=== PATIENT | female | born 1960 | race Caucasian/White ===

== ENCOUNTER → 2016-12-09 | Outpatient (CLI) | payer BC ==
[~2016-12-09] MED LIST: CALCTAB41 PO; DOCU10CA PO; IBUP600T26 PO; PERC5TAB6 PO; VITA500C10 PO
[2016-12-09 15:30] LABS: ALBUMIN/GLOBULIN RATIO 1.33 (1.00-1.93); ALKALINE PHOSPHATASE 94 U/L (45-117); ALT/SGPT 30 U/L (12-78); ANION GAP 7 MEQ/L (8-16); AST/SGOT 11 U/L (15-37); BILIRUBIN,TOTAL 0.4 MG/DL (0.2-1.0); BLOOD UREA NITROGEN 21 MG/DL (7-18); CALCIUM LEVEL 8.9 MG/DL (8.5-10.1); CARBON DIOXIDE LEVEL 27 MEQ/L (21-32); CHLORIDE LEVEL 108 MEQ/L (98-107); CREATININE FOR GFR 0.78 MG/DL (0.55-1.02); GLOMERULAR FILTRATION RATE > 60.0 (>51); GLUCOSE, FASTING 111 MG/DL (70-105); POTASSIUM SERUM 4.6 MEQ/L (3.5-5.1); SODIUM LEVEL 142 MEQ/L (136-145)
== END ==
LOC: M WUC 09:31
PROVIDERS: ATTEND Nurse Practitioner Family
DX: E66.01 Morbid (severe) obesity due to excess calories (principal)

== ENCOUNTER → 2017-04-26 | Outpatient (REF) | payer BC ==
[~2017-04-26] MED LIST changes: +IBUP-1022 PO; -IBUP600T26 PO; +PERC5TAB12 PO; -PERC5TAB6 PO
== END ==
LOC: M SFHCWAGY 09:08
PROVIDERS: ATTEND Nurse Practitioner Women's Health
DX: Z12.4 Encounter for screening for malignant neoplasm of cervix (principal)

== ENCOUNTER → 2017-04-26 | Outpatient (CLI) | payer BC ==
--- NOTE | 2017-04-26 10:36 | REP ---
Bilateral screening digital mammogram: There are no palpable abnormalities or other breast complaints. The patient states she/he had a clinical breast exam in April 2017. Comparison is 12/15/2011. The breast parenchyma is moderately dense, unchanged. There has been no interval development of masses, areas of structural distortion or clusters of microcalcifications typical of malignancy. Impression: There is no evidence of malignancy. BI-RADS/ACR category 1 mammogram. Negative. The patient should have a repeat mammogram in 1 year. This mammogram was interpreted with the aid of an FDA-approved computer-aided detection system. A. Negative x-ray reports should not delay biopsy if a dominant or clinically suspicious mass is present. B. Not all breast cancers cancers are identified by mammography. C. Adenosis and dense breasts may obscure an underlying neoplasm. The patient letter being requested is M1.
== END ==
LOC: M WHC 08:41
PROVIDERS: ATTEND Nurse Practitioner Women's Health
DX: Z12.31 Encounter for screening mammogram for malignant neoplasm of breast (principal)

== ENCOUNTER → 2017-06-29 | Outpatient (CLI) | payer BC ==
[2017-06-29 12:23] LABS: ALBUMIN 3.7 GM/DL (3.2-5.2); ALBUMIN/GLOBULIN RATIO 1.23 (1.00-1.93); ALKALINE PHOSPHATASE 90 U/L (45-117); ALT/SGPT 23 U/L (12-78); ANION GAP 5 MEQ/L (8-16); AST/SGOT 12 U/L (7-37); BILIRUBIN,TOTAL 0.3 MG/DL (0.2-1.0); BLOOD UREA NITROGEN 23 MG/DL (7-18); CARBON DIOXIDE LEVEL 29 MEQ/L (21-32); CHLORIDE LEVEL 110 MEQ/L (98-107); CREATININE FOR GFR 0.67 MG/DL (0.55-1.02); GLOMERULAR FILTRATION RATE > 60.0 (>51); GLUCOSE, FASTING 104 MG/DL (70-105); POTASSIUM SERUM 4.7 MEQ/L (3.5-5.1); SODIUM LEVEL 144 MEQ/L (136-145); TOTAL PROTEIN 6.7 GM/DL (6.4-8.2)
== END ==
LOC: M WUC 09:27
PROVIDERS: ATTEND Nurse Practitioner Family
DX: E66.01 Morbid (severe) obesity due to excess calories (principal)

== ENCOUNTER → 2018-05-03 | Outpatient (CLI) | payer BC | LOC: M WHC 08:20 | DX: Z12.31 Encounter for screening mammogram for malignant neoplasm of breast (principal) | CPT/HCPCS: 77067 ==

== ENCOUNTER 2018-11-05 13:06 | Emergency (ER) | payer BC ==
[~2018-11-05] VITALS: Ht 154.9 cm; Wt 102.4 kg
[2018-11-05] MEDS ORDERED: NS 1,000 ML IV ONE (13:45)
[2018-11-05 14:46] LABS: BASO # 0.1 10^3/uL (0.0-0.2); BASO % 0.4 % (0.0-1.0); EOS # 0.2 10^3/uL (0.0-0.50); EOS % 1.7 % (0.0-3.0); HEMATOCRIT 44.1 % (36.0-47.0); HEMOGLOBIN 14.6 g/dl (12.0-15.5); LYMPH # 2.4 10^3/uL (1.5-4.5); LYMPH % 17.8 % (24.0-44.0); MEAN CORPUSCULAR HEMOGLOBIN 29.5 pg (27.0-33.0); MEAN CORPUSCULAR HGB CONC 33.1 g/dl (32.0-36.5); MEAN CORPUSCULAR VOLUME 89.1 fl (80.0-96.0); MONO # 0.9 10^3/uL (0.0-0.8); MONO % 6.5 % (0.0-5.0); NEUTROPHILS # 9.7 10^3/uL (1.8-7.7); NEUTROPHILS % 72.6 % (36.0-66.0); PLATELET COUNT, AUTOMATED 231 10^3/uL (150-450); RED BLOOD COUNT 4.95 10^6/uL (4.00-5.40); WHITE BLOOD COUNT 13.4 10^3/uL (4.0-10.0)
[2018-11-05] MEDS ORDERED: KETOROLAC 30 MG/ML VIAL (J1885) IV ONE (15:00)
[2018-11-05 15:13] LABS: BLOOD UREA NITROGEN 21 MG/DL (7-18); CALCIUM LEVEL 9.7 MG/DL (8.5-10.1); CARBON DIOXIDE LEVEL 27 MEQ/L (21-32); CHLORIDE LEVEL 108 MEQ/L (98-107); CREATININE FOR GFR 0.75 MG/DL (0.55-1.30); GLOMERULAR FILTRATION RATE > 60.0 (>51); GLUCOSE, FASTING 96 MG/DL (70-100); POTASSIUM SERUM 4.2 MEQ/L (3.5-5.1); SODIUM LEVEL 142 MEQ/L (136-145)
[2018-11-05] MEDS ORDERED: BACT800T5 PO (16:25)
[2018-11-05] MEDS ORDERED: FLOM0.4C39 PO (16:25)
[2018-11-05] MEDS ORDERED: ONDA4TAB6 PO (16:25)
[2018-11-05] MEDS ORDERED: KETO10TAB PO (16:26)
[2018-11-05 16:45] VITALS: BP 110/53
--- NOTE | 2018-11-06 06:35 | REP ---
CT ABDOMEN AND PELVIS WITHOUT CONTRAST: CT abdomen and pelvis performed without oral or IV contrast. Sagittal and coronal reconstruction images are performed. Visualized lung bases demonstrate minor fibroatelectatic change. There is a small hiatal hernia. Small ventral hernia to the left of midline in the mid abdomen contains fat. There is also a small supraumbilical hernia in the midline which contains fat. Liver, spleen, adrenals, pancreas, and right kidney are grossly unremarkable. There is mild left hydroureteronephrosis caused by a 6 mm calculus in the proximal aspect of the left ureter. No bladder calculus is seen. There is no evidence of abdominal aortic aneurysm with mild atherosclerotic calcifications noted. There is no adenopathy. There is no free air or free fluid. No bowel wall thickening is seen. There is no evidence of bowel obstruction. There is no evidence of appendicitis. No pelvic mass is seen. IMPRESSION: There is a 6 mm calculus in the proximal left ureter causing mild left hydroureteronephrosis. No other acute findings. Electronically Signed by Wilmer Ayala MD 11/06/2018 11:24 A
== END 2018-11-05 16:44 | disposition home or self-care (01) ==
LOC: M ED 13:06
DX: N21.1 Calculus in urethra (principal); N30.00 Acute cystitis without hematuria; Z87.442 Personal history of urinary calculi; Z96.0 Presence of urogenital implants; N13.30 Unspecified hydronephrosis; K44.9 Diaphragmatic hernia without obstruction or gangrene; K43.9 Ventral hernia without obstruction or gangrene; Z79.899 Other long term (current) drug therapy; Z88.5 Allergy status to narcotic agent; Z91.013 Allergy to seafood
CPT/HCPCS: 74176; 80048; 81001; 85025; 87088; 87186; 96361; 96374; 99284; J1885

== ENCOUNTER 2018-11-07 05:46 | Day surgery (SDC) | payer BC ==
[~2018-11-07] VITALS: Ht 154.9 cm; Wt 86.4 kg
[~2018-11-07 05:46] MED LIST changes: +BACT800T5 PO; +FLOM0.4C39 PO; +KETO10TAB PO; +ONDA4TAB6 PO
[2018-11-07] MEDS ORDERED: KETOROLAC 30 MG/ML VIAL (J1885) IV ONE (06:15)
[2018-11-07] MEDS ORDERED: NS 1,000 ML IV ONE (06:15)
[2018-11-07] MEDS ORDERED: ONDANSETRON 4MG/2ML VIAL (J2405) IV ONE (06:15)
[2018-11-07 06:49] LABS: BASO % 0.2 % (0.0-1.0); EOS # 0.2 10^3/uL (0.0-0.50); EOS % 1.8 % (0.0-3.0); HEMATOCRIT 41.5 % (36.0-47.0); HEMOGLOBIN 13.2 g/dl (12.0-15.5); LYMPH # 2.2 10^3/uL (1.5-4.5); LYMPH % 17.8 % (24.0-44.0); MEAN CORPUSCULAR HEMOGLOBIN 28.4 pg (27.0-33.0); MEAN CORPUSCULAR HGB CONC 31.8 g/dl (32.0-36.5); MEAN CORPUSCULAR VOLUME 89.4 fl (80.0-96.0); MONO # 0.8 10^3/uL (0.0-0.8); MONO % 6.4 % (0.0-5.0); NEUTROPHILS # 8.9 10^3/uL (1.8-7.7); NEUTROPHILS % 72.5 % (36.0-66.0); PLATELET COUNT, AUTOMATED 229 10^3/uL (150-450); RED BLOOD COUNT 4.64 10^6/uL (4.00-5.40); WHITE BLOOD COUNT 12.3 10^3/uL (4.0-10.0)
--- NOTE | 2018-11-07 07:03 | REP ---
Clinical: Left ureteral stone. Technique: Single supine view of the abdomen and pelvis. Findings: A 5 mm mid left ureteral stone just lateral to the L4-5 disc space is suspected. Further evaluation of the urinary tract system is limited due to bowel gas and technique. No bowel obstruction. Skeletal structures demonstrate age-related degenerative changes. Impression: Suspected 5 mm mid left ureteral stone. Electronically Signed by Israel Thibodeaux MD 11/07/2018 06:54 A
[2018-11-07 07:07] LABS: CALCIUM LEVEL 8.7 MG/DL (8.5-10.1); CREATININE FOR GFR 1.34 MG/DL (0.55-1.30); GLOMERULAR FILTRATION RATE 43.4 (>51); POTASSIUM SERUM 4.4 MEQ/L (3.5-5.1)
--- NOTE | 2018-11-07 07:29 | REPVR ---
EXAM: US Retroperitoneal Limited, Kidneys EXAM DATE/TIME: 11/07/2018 6:59 AM CLINICAL HISTORY: 58 years old, female; Abdominal pain; Colic; Additional info: Left renal colic, known 6mm L prox stone, reassess TECHNIQUE: Imaging protocol: Real-time ultrasound of the retroperitoneum with image documentation. Examination was focused on the kidneys. COMPARISON: CT ABD PELVIS W/O CONTRAST 11/05/2018 1:47 PM FINDINGS: Right kidney: The right kidney measures 11.0 x 5.3 x 5.1 cm. The right renal cortical parenchymal echogenicity is within normal limits. No right renal stones or hydronephrosis. There is no right renal mass. No ureteral jets seen on the right Left kidney: The left kidney measures 11.7 x 6.1 x 6.6 cm. The left renal cortical parenchymal echogenicity is within normal limits. Fullness in the left renal calyces and collecting systems seen. No ureteral jet seen on the left. Bladder: The urinary bladder is under distended but appears grossly unremarkable. IMPRESSION: 1. Mild left-sided hydronephrosis. 2. Nonspecific nonvisualization of the right and left ureteral jets Electronically signed by: Bayron Dalton On 11/07/2018 07:28:52 AM
[2018-11-07 08:04] LABS: AMORPHOUS SEDIMENT SMALL (NEGATIVE); APPEARANCE, URINE CLOUDY (CLEAR); BACTERIA, URINE AUTO NEGATIVE (NEGATIVE); BILIRUBIN, URINE AUTO NEGATIVE (NEGATIVE); BLOOD, URINE BLOOD NEGATIVE (NEGATIVE); COLOR, URINE YELLOW (YELLOW); GLUCOSE, URINE (UA) AUTO 1+ mg/dL (NEGATIVE); KETONE, URINE AUTO NEGATIVE (NEGATIVE); LEUKOCYTE ESTERASE, URINE AUTO 1+ (NEGATIVE); MUCUS, URINE SMALL (NEGATIVE); NITRITE, URINE AUTO NEGATIVE (NEGATIVE); PROTEIN, URINE AUTO NEGATIVE (NEGATIVE); RBC, URINE AUTO 4 /HPF (0-3); SPECIFIC GRAVITY URINE AUTO 1.019 (1.002-1.035); SQUAMOUS EPITHELIAL CELL UR AU 5 /HPF (0-6); URIC ACID CRYSTALS LARGE; UROBILINOGEN, URINE AUTO 0.2 mg/dL (0.0-2.0); WBC, URINE AUTO 2 /HPF (0-3)
--- NOTE | 2018-11-07 09:26 | REP ---
Clinical: Preoperative assessment . Comparison: None . Technique: PA and lateral. Findings: The mediastinum and cardiac silhouette are normal. The lung martínez are clear and without acute consolidation, effusion, or pneumothorax. The skeletal structures are intact and normal. Impression: 1. No acute cardiopulmonary process. Electronically Signed by Israel Thibodeaux MD 11/07/2018 09:17 A
[2018-11-07] MEDS ORDERED: KETO10TAB PO (09:29)
[2018-11-07] MEDS ORDERED: FLOM0.4C39 PO (09:29)
[2018-11-07] MEDS ORDERED: ASCO500T PO (09:29)
[2018-11-07] MEDS ORDERED: ONDANSETRON 4MG/2ML VIAL (J2405) IV PRN ×2 (09:30→18:00)
[2018-11-07] MEDS ORDERED: ACETAMINOPHEN TAB 650MG DOSE (2X325MG) PO PRN (09:30)
[2018-11-07] MEDS ORDERED: NS 1,000 ML IV SCH (09:30)
[2018-11-07] MEDS ORDERED: MORPHINE 4 MG/ML 1ML VIAL/SYRINGE (J2270) IV PRN (09:30)
[2018-11-07] MEDS ORDERED: REFR0.5D8 OU (09:30)
[2018-11-07] MEDS ORDERED: PERCOCET 5MG/325MG TAB PO PRN ×3 (09:30→18:15)
[2018-11-07] MEDS ORDERED: MULTCAP PO (09:30)
[2018-11-07] MEDS ORDERED: MORPHINE 4 MG/ML 1ML VIAL/SYRINGE (J2270) As Ordered ONE (14:09)
[2018-11-07] MEDS ORDERED: ONDANSETRON 4MG/2ML VIAL (J2405) As Ordered ONE ×2 (14:10→16:55)
[2018-11-07] MEDS ORDERED: CONRAY-60 60% 50ML VIAL (Q9961) As Ordered ONE (16:30)
--- NOTE | 2018-11-07 16:44 | SMCUROLCON ---
Urology Consultation General Date of Consultation 11/07/18 Reason For Consultation This patient is seen for Left Ureteral Calculus. History of Present Illness This is a 58 y/o F w/ a significant for kidney stones, who presented to the ER w/ severe left flank pain and n/v. She came to the ER 2 days ago w/ left flank pain and was diagnosed w/ a 6mm proximal left ureteral stone. She was sent home w/ pain medications and flomax and notes that her pain recurred early this morning. Due to the severe pain she came back to the ER. Her labs were notable for a bump in Cr to 1.3 from 0.8. A KUB was done that was notable for migration of the stone down to the mid ureter. At this time her pain is controlled but she is concerned about it coming back if she goes home. She denies dysuria or fevers. She had a kidney stone several years ago that she required surgery for. Past Medical History Medical History kidney stones Surgical Hstory lithotripsy w/ stent placement Medications Current Medications Current Medications Acetaminophen (Tylenol Tab) 650 mg Q4HP PRN PO MILD PAIN or TEMP > 101; Start 11/07/18 at 09:30 Docusate Sodium (Colace) 100 mg BID PO ; Start 11/07/18 at 21:00 Home Med (Med Rec Complete!) ASDIRECTED XX ; Start 11/07/18 at 09:45; Stop 11/07/18 at 09:45; Status DC Morphine Sulfate (Morphine Sulfate Inj) 2 mg Q2HP PRN IV SEVERE PAIN (PS 8-10) Last administered on 11/07/18at 14:16; Start 11/07/18 at 09:30 Ondansetron HCl (ZOFRAN INJection) 4 mg Q6HP PRN IV NAUSEA OR VOMITING Last administered on 11/07/18at 14:16; Start 11/07/18 at 09:30 Oxycodone/ Acetaminophen (Percocet 5mg/ 325mg Tablet) 1 tab Q4HP PRN PO MODERATE PAIN (PS 5-7); Start 11/07/18 at 09:30 Oxycodone/ Acetaminophen (Percocet 5mg/ 325mg Tablet) 2 tab Q4HP PRN PO MODERATE/SEVERE PAIN (PS 5-10); Start 11/07/18 at 09:30 Sodium Chloride 1,000 ml @ 125 mls/hr Q8H IV Last administered on 11/07/18at 10:28; Start 11/07/18 at 09:30 Allergies Allergies: Coded Allergies: shellfish derived (Verified Allergy, Unknown, 11/05/18) bloating codeine (Verified Adverse Reaction, Unknown, 11/05/18) heart racing Review of Systems Constitutional: Denies: Fever, Chills, Sweats, Weakness, Malaise Pulmonary: Denies: Dyspnea, Cough Cardiovascular: Denies Chest Pain, Denies Palpitations Gastrointestinal: Reports: Nausea, Vomiting, Abdominal Pain Genitourinary: Denies: Dysuria, Frequency, Incontinence, Hematuria Musculoskeletal: Reports: Back Pain (left flank pain) Neurological: Denies: Weakness, Numbness, Incoordination, Change in Speech Psych: Reports: Mood Normal; Denies: Anxiety, Depression Physical Examination General Exam: Alert, No Acute Distress Chest Exam: Clear to auscultation Heart Exam: Rate Normal, Regular Rhythm Abdomen Exam: Soft Skin Exam: Nl turgor and temperature Neuro Exam: Normal Speech Psych Exam: Mental status NL, Mood NL Vital Signs/I&O Vital Signs Date Time Temp Pulse Resp B/P (MAP) Pulse Ox O2 Delivery O2 Flow Rate FiO2 11/07/18 16:26 98.5 82 20 137/70 (92) 95 Room Air Laboratory Data 24H Labs Laboratory Tests 2 11/07/18 06:29: Immature Granulocyte % (Auto) 1.3, White Blood Count 12.3H, Red Blood Count 4.64, Hemoglobin 13.2, Hematocrit 41.5, Mean Corpuscular Volume 89.4, Mean Corpuscular Hemoglobin 28.4, Mean Corpuscular Hemoglobin Concent 31.8L, Red Cell Distribution Width 13.0, Platelet Count 229, Neutrophils (%) (Auto) 72.5H, Lymphocytes (%) (Auto) 17.8L, Monocytes (%) (Auto) 6.4H, Eosinophils (%) (Auto) 1.8, Basophils (%) (Auto) 0.2, Neutrophils # (Auto) 8.9H, Lymphocytes # (Auto) 2.2, Monocytes # (Auto) 0.8, Eosinophils # (Auto) 0.2, Basophils # (Auto) 0.0, Nucleated Red Blood Cells % (auto) 0.0, Urine Appearance CLOUDYH, Urine Color YELLOW, Urine pH 5.0, Urine Specific [place] 1.019, Urine Protein NEGATIVE, Urine Glucose (UA) 1+H, Urine Ketones NEGATIVE, Urine Urobilinogen 0.2, Urine Bilirubin NEGATIVE, Urine Leukocyte Esterase 1+H, Urine Blood NEGATIVE, Urine Nitrite NEGATIVE, Urine WBC (Auto) 2, Urine RBC (Auto) 4H, Urine Hyaline Casts (Auto) 0, Urine Bacteria (Auto) NEGATIVE, Urine Squamous Epithelial Cells 5, Urine Uric Acid Crystals (Auto) LARGE, Urine Amorphous Sediment SMALLH, Urine Mucus (Auto) SMALL, Urine Sperm (Auto) , Anion Gap 6L, Glomerular Filtration Rate 43.4L, Blood Urea Nitrogen 29H, Creatinine 1.34#H, Sodium Level 143, Potas sium Level 4.4, Chloride Level 111H, Carbon Dioxide Level 26, Calcium Level 8.7 CBC/BMP Laboratory Tests 11/07/18 06:29 Red Blood Count 4.64, Mean Corpuscular Volume 89.4, Mean Corpuscular Hemoglobin 28.4, Mean Corpuscular Hemoglobin Concent 31.8 L, Red Cell Distribution Width 1 3.0, Neutrophils (%) (Auto) 72.5 H, Lymphocytes (%) (Auto) 17.8 L, Monocytes (%) (Auto) 6.4 H, Eosinophils (%) (Auto) 1.8, Basophils (%) (Auto) 0.2, Neutrophils # (Auto) 8.9 H, Lymphocytes # (Auto) 2.2, Monocytes # (Auto) 0.8, Eosinophils # (Auto) 0.2, Basophils # (Auto) 0.0, Calcium Level 8.7 Assessment This is a 58 y/o F w/ an obstructing 6mm mid left ureteral stone and ABRAHAM. The ABRAHAM is likely 2/2 to n/v. Given this is her 2nd trip to the ER in a few days, I recommended that we take her to the OR for cystoscopy, left ureteroscopy w/ laser lithotripsy, and left ureteral stent placement. After a discussion of the risks and benefits of surgery, informed consent was signed. Her UA appears negative for infection. Plan - informed consent signed for cystoscopy, left ureteroscopy w/ laser lithotripsy, and left ureteral stent placement - NPO - ancef preop - likely discharge home after surgery if pain is controlled FRANCIS GATES MD November 07, 2018 16:44
[2018-11-07] MEDS ORDERED: ceFAZolin 2 GM/D5W 50 ML IV BAG (J0690 PER 500MG) As Ordered ONE (16:55)
[2018-11-07] MEDS ORDERED: dexameTHASONE 4 MG/ML 1ML VIAL (J1100) As Ordered ONE (16:55)
[2018-11-07] MEDS ORDERED: LIDOCAINE 2% INJ 100 MG/5 ML SDV (FOR ANES.) As Ordered ONE (16:55)
[2018-11-07] MEDS ORDERED: PROPOFOL 200 MG/20 ML VIAL As Ordered ONE (16:55)
[2018-11-07] MEDS ORDERED: fentaNYL 100 MCG/2 ML INJECTION (J3010) As Ordered ONE ×2 (16:55→17:12)
[2018-11-07] MEDS ORDERED: METOCLOPRAMIDE INJ 10MG/2ML VIAL (J2765) As Ordered ONE (16:55)
[2018-11-07] MEDS ORDERED: MIDAZOLAM INJ 2 MG/2 ML VIAL (J2250) As Ordered ONE (16:55)
[2018-11-07] MEDS ORDERED: diphenhydrAMINE INJ 50MG/ML VIAL (J1200) As Ordered ONE (17:05)
[2018-11-07] MEDS ORDERED: ePHEDrine SULFATE 25 MG/5 ML(5MG/ML) SYRINGE As Ordered ONE (17:17)
[2018-11-07] MEDS ORDERED: PHENYLephrine HCL 500 MCG/5 ML (100MCG/ML) SYRINGE (J2370) As Ordered ONE (17:28)
[2018-11-07] MEDS ORDERED: LR 1,000 ML IV SCH (18:00)
[2018-11-07] MEDS ORDERED: fentaNYL 100 MCG/2 ML INJECTION (J3010) IV PRN (18:00)
[2018-11-07] MEDS ORDERED: METOCLOPRAMIDE INJ 10MG/2ML VIAL (J2765) IV PRN (18:00)
[2018-11-07] MEDS ORDERED: MEPERIDINE INJ 25 MG/ML VIAL (J2175) IV PRN (18:00)
[2018-11-07] MEDS: PERCOCET 5MG/325MG TAB PO PRN ×2 (18:35→19:26)
--- NOTE | 2018-11-07 18:41 | REP ---
REASON: Left sided double pigtail urinary tract stent placement. Two views were obtained in my absentia. Fluoroscopy provided to Dr. Spencer is 25 seconds. There is a double pigtail catheter on the left. The proximal portion of the region of the renal pelvis and the distal portion of the region of the urinary bladder. Electronically Signed by Дмитрий Barr DO 11/07/2018 06:50 P
[2018-11-07 19:39] VITALS: BP 132/61
[2018-11-07] MEDS ORDERED: DOCUSATE SODIUM 100 MG CAP PO SCH (21:00)
--- NOTE | 2018-11-07 22:05 | ECGEPIP ---
Stationary ECG Study [facility] - ED Test Date: 2018-11-07 Pat Name: YAZ RAY Department: Room: - Gender: F Market Maker: DAVID : [id number] Requested By: ANKUSH GOMEZ PA-C. Order Number: [id number] Reading MD: Marc Jay Measurements Intervals [place] Rate: 83 P: 42 NV: 159 QRS: 12 QRSD: 75 T: 22 QT: 355 QTc: 418 Interpretive Statements SINUS RHYTHM SIMILAR TO 08/11/14 Electronically Signed On 11-07-2018 22:05:39 EDT by Marc Jay
--- NOTE | 2018-11-08 00:24 | RO ---
DATE OF PROCEDURE: 11/07/2018 PREPROCEDURE DIAGNOSIS: Left ureteral stone. POSTPROCEDURE DIAGNOSIS: Left ureteral stone. PROCEDURE: Cystoscopy, left ureteroscopy with laser lithotripsy and basket extraction of stones, left retrograde pyelogram with intraoperative interpretation of images, left ureteral stent placement. SURGEON: Maximo Spencer MD OFFICE SECRETARY: None. ANESTHESIA: General. OPERATIVE INDICATIONS: This is a 58-year-old female who was found to have a 6 mm obstructing proximal left ureteral stone a few days ago when she presented to the emergency room. She was sent home with pain medication and Flomax and her pain recurred early this morning. She was, therefore, recommended to be brought to the operating room today for the above listed procedure. DESCRIPTION OF PROCEDURE: The patient was brought to the operating room and general anesthesia was induced. Prophylactic antibiotics were infused. She was then placed in the dorsal lithotomy position and prepped and draped in the usual sterile fashion. A rigid cystoscope was inserted into the urethral meatus and advanced to the bladder. Once inside the bladder, a guidewire was advanced up the left collecting system. I then advanced a ureteral access sheath up the wire and then I went up the ureteral access sheath with a flexible ureteroscope. Within the mid ureter, a 6 mm stone was seen. The stone was then fragmented into several smaller pieces using 200 micron laser fiber. All the fragments were then removed using a basket. A retrograde pyelogram was then performed. It was notable for mild left hydronephrosis, no extravasation. At this point, the ureteroscope was removed along with the access sheath and no additional stones were seen in the ureter. I then utilized a wire to advance a 6-Vietnamese x 22-32 cm JJ ureteral stent up into the left collecting system. The wire was then removed, and there were adequate curls of the stent in the left renal pelvis and in the bladder. The bladder was then emptied of all fluids, and this marked the conclusion of the procedure. The patient was then taken out of the dorsal lithotomy position, awakened from anesthesia, and transported to the recovery room in stable condition. Estimated blood loss: 5 mL. Complications: None. Specimens: Kidney stone fragments. PLAN: The patient will followup in the clinic in a week or two for stent removal.
[2018-11-11 00:07] LABS: CA Oxalate Dihy 10 % (.); COMMENT Note: (.); Ca Ox Monohydrate 85 % (.)
== END 2018-11-07 19:40 | disposition home or self-care (01) ==
LOC: M ED 05:46 → M SDC 09:30
PROVIDERS: ATTEND Urology
DX: N20.1 Calculus of ureter (principal); Z87.891 Personal history of nicotine dependence; G47.30 Sleep apnea, unspecified; Z88.5 Allergy status to narcotic agent; Z91.013 Allergy to seafood
CPT/HCPCS: 52356; 71046; 74018; 74420; 76775; 80048; 81001; 82360; 85025; 88300; 93005; 96361; 96375; 96376; 99284; C1769; C2617; J0690; J1100; J1200; J1885; J2250; J2270; J2370; J2405; J2765; J3010; Q9961

== ENCOUNTER → 2019-05-04 | Outpatient (CLI) | payer BC ==
[~2019-05-04] MED LIST changes: +ASCO500T PO; +MULTCAP PO; +REFR0.5D8 OU
--- NOTE | 2019-05-04 09:55 | REP ---
BILATERAL MAMMOGRAM WITH 3D TOMOSYNTHESIS: No family history of breast cancer. Tyrer-Cuzick lifetime risk of breast cancer 6.1%. Bilateral MLO and CC views are performed with 3D tomosynthesis. Mild to moderate fibroglandular tissue for the most part is unchanged. I suspect a well circumscribed 6 mm nodule laterally in the left breast. I see no other evidence of new mass or clustered microcalcifications. There is no architectural distortion. IMPRESSION: BIRADS 0: BI-RADS/ACR category 0 mammogram, Incomplete: Need additional imaging evaluation and/or prior mammograms for comparison. There appears to be a new well circumscribed 6 mm nodule in the lateral left breast. Recommend spot compression views and ultrasound to further evaluate. ACR 0 incomplete. This mammogram was interpreted with the aid of an FDA-approved computer-aided detection system. The patient states he/she had a clinical breast exam in 04/2019. The patient letter being requested is M0.
== END ==
LOC: M WHC 07:53
PROVIDERS: ATTEND Nurse Practitioner Women's Health
DX: Z12.31 Encounter for screening mammogram for malignant neoplasm of breast (principal); N63.20 Unspecified lump in the left breast, unspecified quadrant

== ENCOUNTER → 2019-05-15 | Outpatient (CLI) | payer BC ==
--- NOTE | 2019-05-15 13:08 | REP ---
DIGITAL DIAGNOSTIC UNILATERAL LEFT BREAST MAMMOGRAPHY WITH CAD AND FOCUSED LEFT BREAST SONOGRAPHY: HISTORY: Screening mammography from May 04, 2019 was BI-RADS category 0 due to a 6 mm well-circumscribed nodule in the lateral left breast. Diagnostic imaging was recommended. MAMMOGRAPHIC FINDINGS: Magnified focal spot compression ML, true MLO, and MLO views of the left breast were obtained. The nodular opacity in question persists on the craniocaudal view and is seen on the MLO projection image. No other mammographic abnormality is seen. There is a larger stable density in the upper outer quadrant on the left as well. This not suspicious. SONOGRAPHIC FINDINGS: The left breast is scanned from 1-o'clock to 5-o'clock position. At the 1-o'clock position, there is a 1.2 cm normal-appearing lymph node with thin cortex overlying fatty hilar architecture. There is a 0.4 cm cyst at 1-o'clock position 2.2 cm from the nipple which may account for the mammographic opacity. No suspicious sonographic finding is seen. There is somewhat heterogeneous fibroglandular echotexture. IMPRESSION: BIRADS 2: BI-RADS/ACR category 2 mammogram. Benign Findings. BI-RADS category 2 benign left breast findings. Small cyst seen on sonography. Repeat screening bilateral mammography recommended in 1 year. This mammogram was interpreted with the aid of an FDA-approved computer-aided detection system. The patient states she had a clinical breast exam in April 23, 2019 The patient letter being requested is M#1. Electronically Signed by Reynold Johnston MD 05/15/2019 01:50 P
== END ==
LOC: M RAD 09:36
PROVIDERS: ATTEND Nurse Practitioner Women's Health
DX: N60.02 Solitary cyst of left breast (principal)

== ENCOUNTER → 2019-05-17 | Outpatient (REF) | payer BC ==
[2019-05-17 15:36] LABS: BASO % 0.4 % (0.0-1.0); EOS # 0.2 10^3/uL (0.0-0.5); EOS % 2.5 % (0.0-3.0); HEMATOCRIT 44.7 % (36.0-47.0); LYMPH # 2.8 10^3/uL (1.5-5.0); LYMPH % 36.6 % (24.0-44.0); MEAN CORPUSCULAR HEMOGLOBIN 29.5 pg (27.0-33.0); MEAN CORPUSCULAR HGB CONC 31.3 g/dl (32.0-36.5); MEAN CORPUSCULAR VOLUME 94.1 fl (80.0-96.0); MONO # 0.6 10^3/uL (0.0-0.8); PLATELET COUNT, AUTOMATED 187 10^3/uL (150-450); RED BLOOD COUNT 4.75 10^6/uL (4.00-5.40); WHITE BLOOD COUNT 7.7 10^3/uL (4.0-10.0)
[2019-05-17 15:53] LABS: ALBUMIN 3.8 GM/DL (3.2-5.2); ALT/SGPT 31 U/L (12-78); BILIRUBIN,TOTAL 0.5 MG/DL (0.2-1.0); BLOOD UREA NITROGEN 22 MG/DL (7-18); CARBON DIOXIDE LEVEL 30 MEQ/L (21-32); CHLORIDE LEVEL 106 MEQ/L (98-107); CHOLESTEROL LEVEL 162 MG/DL (<200); CHOLESTEROL RISK RATIO 4.378 (<5); CREATININE FOR GFR 0.72 MG/DL (0.55-1.30); FREE T4 0.78 NG/DL (0.76-1.46); GLOMERULAR FILTRATION RATE > 60.0 (>51); GLUCOSE, FASTING 88 MG/DL (70-100); HDL CHOLESTEROL 37 MG/DL (>40); LDL CHOLESTEROL 93 MG/DL (<100); NON-HDL-C 125 MG/DL; POTASSIUM SERUM 4.3 MEQ/L (3.5-5.1); SODIUM LEVEL 142 MEQ/L (136-145); TOTAL 25(OH) VITAMIN D 43.1 NG/ML (30.0-100.0); TRIGLYCERIDES LEVEL 160 MG/DL (<150)
[2019-05-17 16:01] LABS: HEMOGLOBIN A1c 5.9 %
== END ==
LOC: M SFHCSACK 10:23
PROVIDERS: ATTEND Physician Assistant
DX: Z87.442 Personal history of urinary calculi (principal); Z13.220 Encounter for screening for lipoid disorders; E03.9 Hypothyroidism, unspecified; Z83.3 Family history of diabetes mellitus; E55.9 Vitamin D deficiency, unspecified

== ENCOUNTER → 2019-11-09 | Outpatient (REF) | payer BC ==
[2019-11-09 11:44] LABS: BASO % 0.4 % (0.0-1.0); EOS # 0.3 10^3/uL (0.0-0.5); EOS % 3.5 % (0.0-3.0); HEMATOCRIT 45.1 % (36.0-47.0); LYMPH % 33.7 % (24.0-44.0); MEAN CORPUSCULAR HEMOGLOBIN 28.6 pg (27.0-33.0); MEAN CORPUSCULAR VOLUME 92.2 fl (80.0-96.0); MONO # 0.9 10^3/uL (0.0-0.8); MONO % 9.6 % (0.0-5.0); NEUTROPHILS # 4.6 10^3/uL (1.5-8.5); NEUTROPHILS % 51.8 % (36.0-66.0); PLATELET COUNT, AUTOMATED 224 10^3/uL (150-450); RED BLOOD COUNT 4.89 10^6/uL (4.00-5.40)
[2019-11-09 12:38] LABS: ALT/SGPT 26 U/L (12-78); BILIRUBIN,TOTAL 0.3 MG/DL (0.2-1.0); BLOOD UREA NITROGEN 18 MG/DL (7-18); CALCIUM LEVEL 8.9 MG/DL (8.5-10.1); CARBON DIOXIDE LEVEL 28 MEQ/L (21-32); CHLORIDE LEVEL 111 MEQ/L (98-107); CHOLESTEROL LEVEL 166 MG/DL (<200); CREATININE FOR GFR 0.86 MG/DL (0.55-1.30); GLOMERULAR FILTRATION RATE > 60.0 (>51); GLUCOSE, FASTING 130 MG/DL (70-100); HDL CHOLESTEROL 37 MG/DL (>40); POTASSIUM SERUM 4.7 MEQ/L (3.5-5.1); SODIUM LEVEL 144 MEQ/L (136-145); TRIGLYCERIDES LEVEL 160 MG/DL (<150)
[2019-11-09 12:39] LABS: ALBUMIN 3.7 GM/DL (3.2-5.2); CHOLESTEROL RISK RATIO 4.486 (<5); FREE T4 0.85 NG/DL (0.76-1.46); LDL CHOLESTEROL 97 MG/DL (<100); NON-HDL-C 129 MG/DL; TOTAL PROTEIN 6.8 GM/DL (6.4-8.2)
[2019-11-09 14:31] LABS: TOTAL 25(OH) VITAMIN D 40.9 NG/ML (30.0-100.0)
== END ==
LOC: M SFHCPLAZ 08:13
PROVIDERS: ATTEND Physician Assistant
DX: E78.1 Pure hyperglyceridemia (principal); E03.9 Hypothyroidism, unspecified; E55.9 Vitamin D deficiency, unspecified

== ENCOUNTER → 2020-05-06 | Outpatient (CLI) | payer BC ==
--- NOTE | 2020-05-06 09:22 | REPMRS ---
Patient History The patient states she had a clinical breast exam in May 2020. No known family history of cancer. Reductions of both breasts, 2000. 3D TOMOSYNTHESIS WAS PERFORMED. [facility] lifetime risk for breast cancer is 5.9%. [place] breast density b. Digital Woman Screen Mammo: May 06, 2020 - Exam #: [id number] Bilateral CC and MLO view(s) were taken. Technologist: RT Nataliia Prior study comparison: May 15, 2019, left breast digital mammo diagnostic unilateral, performed at [facility]. May 04, 2019, bilateral digital woman screen mammo performed at [facility]. FINDINGS: There are scattered fibroglandular densities. There is a fairly symmetric fibroglandular pattern in both breasts. There has been no interval development of masses, areas of architectural distortion or clusters of microcalcifications typical of malignancy. Assessment: BI-RADS/ACR category 2 mammogram. Benign Findings. Recommendation Routine screening mammogram of both breasts in 1 year (for women over age 40). This mammogram was interpreted with the aid of an FDA-approved computer-aided dectection system. Electronically Signed By: Wilmer Ayala MD 05/06/20 0921
== END ==
LOC: M WHC 08:03
PROVIDERS: ATTEND Nurse Practitioner Women's Health
DX: Z12.31 Encounter for screening mammogram for malignant neoplasm of breast (principal)

== ENCOUNTER → 2020-05-06 | Outpatient (REF) | payer BC | LOC: M SFHCWAGY 10:03 | PROVIDERS: ATTEND Nurse Practitioner Women's Health | DX: Z12.4 Encounter for screening for malignant neoplasm of cervix (principal); N95.2 Postmenopausal atrophic vaginitis | CPT/HCPCS: 87624; G0123 ==

== ENCOUNTER → 2020-05-16 | Outpatient (CLI) | payer BC ==
[2020-05-16 10:17] LABS: ALBUMIN 3.8 GM/DL (3.2-5.2); ALT/SGPT 28 U/L (12-78); BILIRUBIN,TOTAL 0.4 MG/DL (0.2-1.0); BLOOD UREA NITROGEN 22 MG/DL (7-18); CALCIUM LEVEL 8.5 MG/DL (8.5-10.1); CARBON DIOXIDE LEVEL 25 MEQ/L (21-32); CHLORIDE LEVEL 109 MEQ/L (98-107); CHOLESTEROL LEVEL 133 MG/DL (<200); CREATININE FOR GFR 0.76 MG/DL (0.55-1.30); GLOMERULAR FILTRATION RATE > 60.0 (>51); GLUCOSE, FASTING 143 MG/DL (70-100); HDL CHOLESTEROL 33 MG/DL (>40); LDL CHOLESTEROL 63 MG/DL (<100); NON-HDL-C 100 MG/DL; POTASSIUM SERUM 4.3 MEQ/L (3.5-5.1); SODIUM LEVEL 142 MEQ/L (136-145); TOTAL PROTEIN 6.4 GM/DL (6.4-8.2); TRIGLYCERIDES LEVEL 183 MG/DL (<150)
== END ==
LOC: M WUC 08:07
PROVIDERS: ATTEND Physician Assistant
DX: E78.1 Pure hyperglyceridemia (principal); Z83.3 Family history of diabetes mellitus; Z87.442 Personal history of urinary calculi

== ENCOUNTER → 2020-05-27 | Outpatient (CLI) | payer BC ==
[2020-05-27 12:26] LABS: HEMATOCRIT 46.1 % (36.0-47.0); HEMOGLOBIN 14.6 g/dl (12.0-15.5); MEAN CORPUSCULAR HEMOGLOBIN 29.1 pg (27.0-33.0); MEAN CORPUSCULAR HGB CONC 31.7 g/dl (32.0-36.5); PLATELET COUNT, AUTOMATED 235 10^3/uL (150-450); RED BLOOD COUNT 5.01 10^6/uL (4.00-5.40); WHITE BLOOD COUNT 9.3 10^3/uL (4.0-10.0)
[2020-05-27 13:02] LABS: ERYTHROCYTE SEDIMENTATION RATE 10 mm/hr (0-30)
[2020-05-27 13:04] LABS: C REACTIVE PROTEIN QUANTITATIV 1.52 MG/DL (0.00-0.30); RHEUMATOID FACTOR QUANT < 10.0 IU/ML (<15.0)
[2020-05-29 13:08] LABS: ANTINUCLEAR ANTIBODIES DIRECT Negative (Negative); CYCLIC CITRULLINATED PEPTIDE 3 units (0-19); Lyme Disease IgG Ab 18 kDa Ban Absent (.); Lyme Disease IgG Ab 23 kDa Ban Absent (.); Lyme Disease IgG Ab 28 kDa Ban Absent (.); Lyme Disease IgG Ab 30 kDa Ban Absent (.); Lyme Disease IgG Ab 39 kDa Ban Absent (.); Lyme Disease IgG Ab 41 kDa Ban Present (.); Lyme Disease IgG Ab 45 kDa Ban Absent (.); Lyme Disease IgG Ab 58 kDa Ban Absent (.); Lyme Disease IgG Ab 66 kDa Ban Absent (.); Lyme Disease IgG Ab 93 kDa Ban Absent (.); Lyme Disease IgG West Blot Int Negative (.); Lyme Disease IgG/IgM Antibodie 1.08 ISR (0.00-0.90); Lyme Disease IgM Ab 23 kDa Ban Absent (.); Lyme Disease IgM Ab 39 kDa Ban Absent (.); Lyme Disease IgM Ab 41 kDa Ban Absent (.); Lyme Disease IgM Ab Quantitati <0.80 index (0.00-0.79); Lyme Disease IgM West Blot Int Negative (.)
== END ==
LOC: M WUC 08:47
PROVIDERS: ATTEND Physician Assistant
DX: M25.50 Pain in unspecified joint (principal)

== ENCOUNTER → 2021-06-05 | Outpatient (CLI) | payer BC ==
--- NOTE | 2021-06-05 10:18 | REPMRS ---
Patient History The patient states she had a clinical breast exam in June 2021. No known family history of cancer. Reductions of both breasts, 2000. Tomosynthesis is performed. Volpara breast density is a. [facility] lifetime risk of breast cancer 5.7%. Patient states no breast complaints today. Patient has signed MRS History Sheet. Digital Woman Screen Mammo: June 05, 2021 - Exam #: [id number] Bilateral CC and MLO view(s) were taken. Technologist: Geeta Armas Technologist Prior study comparison: May 06, 2020, bilateral digital woman screen mammo performed at [facility]. May 15, 2019, left breast digital mammo diagnostic unilateral, performed at [facility]. FINDINGS: There are scattered fibroglandular densities. There is a fairly symmetric fibroglandular pattern in both breasts. There has been no interval development of masses, areas of architectural distortion or clusters of microcalcifications typical of malignancy.Scattered subcentimeter smoothly marginated nodules are stable bilaterally. No significant changes when compared with prior studies. Assessment: BI-RADS/ACR category 2 mammogram. Benign Findings. Recommendation Routine screening mammogram in 1 year (for women over age 40). This mammogram was interpreted with the aid of an FDA-approved computer-aided dectection system. Electronically Signed By: Wilmer Ayala MD 06/05/21 1018
== END ==
LOC: M WHC 07:11
PROVIDERS: ATTEND Nurse Practitioner Women's Health
DX: Z12.31 Encounter for screening mammogram for malignant neoplasm of breast (principal)

== ENCOUNTER → 2021-10-30 | Outpatient (CLI) | payer BC | LOC: M SOG 11:23 | PROVIDERS: ATTEND Orthopaedic Surgery Adult Reconstructive Orthopaedic Surgery | DX: M25.562 Pain in left knee (principal); M17.12 Unilateral primary osteoarthritis, left knee ==

== ENCOUNTER 2021-11-26 14:09 | Outpatient (RCR) | payer BC | END 2021-12-02 | LOC: M PT 14:09 | PROVIDERS: ATTEND Orthopaedic Surgery Adult Reconstructive Orthopaedic Surgery | DX: M17.11 Unilateral primary osteoarthritis, right knee (principal) ==

== ENCOUNTER → 2021-12-08 | Outpatient (CLI) | payer BC ==
[~2021-12-08] MED LIST changes: +FAMO40TA3; +PHEN15CA6; +VITMTA PO
== END ==
LOC: M RAD 13:16
PROVIDERS: ATTEND Orthopaedic Surgery Adult Reconstructive Orthopaedic Surgery
DX: M17.0 Bilateral primary osteoarthritis of knee (principal); M25.761 Osteophyte, right knee; M25.751 Osteophyte, right hip

== ENCOUNTER → 2021-12-21 | Outpatient (CLI) | payer BC ==
[~2021-12-21] MED LIST changes: +ACET1TAB55 PO; +ASCO50TA PO; +ASPI-551 PO; +COLA100C5 PO; +FERR1TAB8 PO; +NAPR-849 PO; +OXYC-517 PO; +TRAM50TA2 PO
== END ==
LOC: M LABSMTC 11:25
PROVIDERS: ATTEND Anesthesiology
DX: Z01.812 Encounter for preprocedural laboratory examination (principal); Z20.822 Contact with and (suspected) exposure to COVID-19

== ENCOUNTER 2021-12-22 08:53 | Day surgery (SDC) | payer BC ==
[~2021-12-22] VITALS: Ht 157.5 cm; Wt 105.5 kg
[~2021-12-22 08:53] MED LIST changes: -ACET1TAB55 PO; +ACETAMINOPHEN 500 MG TAB PO ONE; -ASCO50TA PO; -ASPI-551 PO; -COLA100C5 PO; -FERR1TAB8 PO; -NAPR-849 PO; +NAPROXEN 250 MG TAB PO ONE; +NS 1,000 ML IV ONE; -OXYC-517 PO; +PREGABALIN 25 MG CAP (LYRICA) PO ONE; +ROPIVA 125MG/EPINEPH 0.25MG/CLONID 40MCG/KETOR 15MG IN NS 50ML SYRINGE PA ONE; -TRAM50TA2 PO; +ceFAZolin SOD 2 GM in IV 1 EA IV ONE; +dexameTHASONE 4 MG/ML 1ML VIAL (J1100 PER 1MG) IV ONE
[2021-12-22] MEDS ORDERED: LR 1,000 ML IV SCH ×2 (09:45→13:40)
[2021-12-22] MEDS ORDERED: MIDAZOLAM INJ 2MG/2ML VIAL (J2250 PER 1MG) As Ordered ONE (09:48)
[2021-12-22] MEDS ORDERED: propofoL 500 MG/50 ML VIAL As Ordered ONE (09:48)
[2021-12-22] MEDS ORDERED: fentaNYL 100 MCG/2 ML INJECTION As Ordered ONE (09:49)
[2021-12-22] MEDS ORDERED: dexameTHASONE 4 MG/ML 1ML VIAL (J1100 PER 1MG) As Ordered ONE (09:50)
[2021-12-22] MEDS ORDERED: ONDANSETRON 4MG/2ML VIAL As Ordered ONE (09:50)
[2021-12-22] MEDS ORDERED: LIDOCAINE 2% 100MG/5ML SDV (FOR ANES.) As Ordered ONE (09:56)
[2021-12-22] MEDS ORDERED: TRANEXAMIC ACID 100 MG/ML 10ML VIAL As Ordered ONE (10:31)
[2021-12-22] MEDS ORDERED: propofoL 200 MG/20 ML VIAL As Ordered ONE ×2 (12:14→12:39)
[2021-12-22] MEDS ORDERED: PHENYLephrine 500MCG 5ML (100MCG/ML) SYRINGE As Ordered ONE (12:25)
[2021-12-22] MEDS ORDERED: MEPERIDINE INJ 25 MG/ML VIAL (J2175) IV PRN (13:10)
[2021-12-22] MEDS ORDERED: oxyCODONE 5MG TAB PO PRN ×3 (13:10→13:30)
[2021-12-22] MEDS ORDERED: NS 1,000 ML IV SCH (13:10)
[2021-12-22] MEDS ORDERED: HYDROMORPHONE HCL 0.5 MG/ 0.5 ML SYRINGE (J1170 PER 1) IV PRN (13:10)
[2021-12-22] MEDS ORDERED: fentaNYL 100 MCG/2 ML INJECTION IV PRN (13:10)
[2021-12-22] MEDS ORDERED: ONDANSETRON 4MG/2ML VIAL IV PRN ×2 (13:10→13:30)
[2021-12-22] MEDS ORDERED: MOM 30ML SUSPENSION UDC PO PRN (13:20)
[2021-12-22] MEDS ORDERED: SENNA 8.6 MG TAB (SENOKOT) PO PRN (13:30)
[2021-12-22 15:46] VITALS: BP 158/63
[2021-12-22 16:30] VITALS: BP 121/57
[2021-12-22 17:30] VITALS: BP 136/68
[2021-12-22 18:30] VITALS: BP 135/66
[2021-12-22] MEDS: ACETAMINOPHEN TAB 650MG DOSE (2X325MG) PO SCH ×2 (18:36→23:40)
[2021-12-22] MEDS: ceFAZolin SOD 2 GM in IV 1 EA IV SCH (18:37)
[2021-12-22 19:39] VITALS: BP 131/82
[2021-12-22] MEDS: ASPIRIN 81MG ENTERIC TABLET PO SCH (20:20)
[2021-12-22] MEDS: DOCUSATE SODIUM 100MG CAPSULE PO SCH ×2 (20:20→21:00)
[2021-12-22] MEDS: NAPROXEN 250 MG TAB PO SCH (20:20)
[2021-12-22] MEDS: traMADol 50 MG TAB PO PRN (23:42)
[2021-12-23 01:28] VITALS: BP 104/66
[2021-12-23] MEDS: ceFAZolin SOD 2 GM in IV 1 EA IV SCH ×2 (02:57→12:09)
[2021-12-23] MEDS: ACETAMINOPHEN TAB 650MG DOSE (2X325MG) PO SCH ×2 (05:28→12:09)
[2021-12-23 05:43] VITALS: BP 121/67
[2021-12-23 05:44] LABS: HEMATOCRIT 38.7 % (36.0-47.0); HEMOGLOBIN 12.5 g/dl (12.0-15.5); MEAN CORPUSCULAR HEMOGLOBIN 29.7 pg (27.0-33.0); MEAN CORPUSCULAR HGB CONC 32.3 g/dl (32.0-36.5); MEAN CORPUSCULAR VOLUME 91.9 fl (80.0-96.0); PLATELET COUNT, AUTOMATED 220 10^3/uL (150-450); RED BLOOD COUNT 4.21 10^6/uL (4.00-5.40); WHITE BLOOD COUNT 21.1 10^3/uL (4.0-10.0)
[2021-12-23] MEDS ORDERED: FERR1TAB8 PO (08:17)
[2021-12-23] MEDS ORDERED: OXYC-517 PO (08:17)
[2021-12-23] MEDS ORDERED: ASCO50TA PO (08:17)
[2021-12-23] MEDS ORDERED: ASPI-551 PO (08:17)
[2021-12-23] MEDS ORDERED: ACET1TAB55 PO (08:17)
[2021-12-23] MEDS ORDERED: TRAM50TA2 PO (08:17)
[2021-12-23] MEDS ORDERED: NAPR-849 PO (08:17)
[2021-12-23] MEDS ORDERED: COLA100C5 PO (08:17)
[2021-12-23] MEDS ORDERED: FERROUS SULFATE 325MG TAB PO SCH (09:00)
[2021-12-23] MEDS ORDERED: ASCORBIC ACID 500 MG TAB PO SCH (09:00)
[2021-12-23] MEDS: DOCUSATE SODIUM 100MG CAPSULE PO SCH ×2 (09:00→09:11)
[2021-12-23] MEDS: ASPIRIN 81MG ENTERIC TABLET PO SCH (09:11)
[2021-12-23] MEDS: NAPROXEN 250 MG TAB PO SCH (09:12)
[2021-12-23 09:53] VITALS: BP 123/60
[2021-12-23 14:00] VITALS: BP 119/60
[2021-12-23] MEDS: traMADol 50 MG TAB PO PRN (15:41)
== END 2021-12-23 17:05 | disposition home health service (06) ==
LOC: M SDC 08:53 → M MS5PR 15:45 → M SDC 12-23 17:05
PROVIDERS: ATTEND Orthopaedic Surgery Adult Reconstructive Orthopaedic Surgery
DX: M17.11 Unilateral primary osteoarthritis, right knee (principal); K21.9 Gastro-esophageal reflux disease without esophagitis; G47.33 Obstructive sleep apnea (adult) (pediatric); Z79.899 Other long term (current) drug therapy; Z88.5 Allergy status to narcotic agent; Z91.013 Allergy to seafood; Z87.891 Personal history of nicotine dependence
CPT/HCPCS: 27447; 36415; 73560; 85027; 87641; 88304; 88311; 96361; 96365; 96366; 97110; 97161; 97165; 97530; 97535; C1776; J0690; J1100; J2250; J2370; J2405; J3010; S2900

== ENCOUNTER → 2021-12-25 | Outpatient (REF) | payer BC ==
[~2021-12-25] MED LIST changes: +ACET1TAB55 PO; -ACETAMINOPHEN 500 MG TAB PO ONE; +ASCO50TA PO; +ASPI-551 PO; +COLA100C5 PO; +FERR1TAB8 PO; +NAPR-849 PO; -NAPROXEN 250 MG TAB PO ONE; -NS 1,000 ML IV ONE; +OXYC-517 PO; -PREGABALIN 25 MG CAP (LYRICA) PO ONE; -ROPIVA 125MG/EPINEPH 0.25MG/CLONID 40MCG/KETOR 15MG IN NS 50ML SYRINGE PA ONE; +TRAM50TA2 PO; -ceFAZolin SOD 2 GM in IV 1 EA IV ONE; -dexameTHASONE 4 MG/ML 1ML VIAL (J1100 PER 1MG) IV ONE
[2021-12-25 16:43] LABS: HEMATOCRIT 36.7 % (36.0-47.0); HEMOGLOBIN 12.2 g/dl (12.0-15.5); MEAN CORPUSCULAR HEMOGLOBIN 30.4 pg (27.0-33.0); MEAN CORPUSCULAR HGB CONC 33.2 g/dl (32.0-36.5); MEAN CORPUSCULAR VOLUME 91.5 fl (80.0-96.0); PLATELET COUNT, AUTOMATED 204 10^3/uL (150-450); RED BLOOD COUNT 4.01 10^6/uL (4.00-5.40); WHITE BLOOD COUNT 9.8 10^3/uL (4.0-10.0)
== END ==
LOC: M SHH 15:59
PROVIDERS: ATTEND Orthopaedic Surgery Adult Reconstructive Orthopaedic Surgery
DX: Z47.89 Encounter for other orthopedic aftercare (principal)

== ENCOUNTER → 2022-01-02 | Outpatient (CLI) | payer BC | LOC: M SOG 08:29 | PROVIDERS: ATTEND Orthopaedic Surgery Adult Reconstructive Orthopaedic Surgery | DX: M17.11 Unilateral primary osteoarthritis, right knee (principal); Z96.651 Presence of right artificial knee joint ==

== ENCOUNTER → 2022-08-31 | Outpatient (CLI) | payer OTHER | LOC: M WHC 11:22 | PROVIDERS: ATTEND Nurse Practitioner Family | DX: Z12.31 Encounter for screening mammogram for malignant neoplasm of breast (principal) ==

== ENCOUNTER → 2022-08-31 | Outpatient (REF) | payer OTHER | LOC: M SFHCWAGY 17:16 | PROVIDERS: ATTEND Nurse Practitioner Family | DX: Z12.4 Encounter for screening for malignant neoplasm of cervix (principal); Z77.9 Other contact with and (suspected) exposures hazardous to health | CPT/HCPCS: 87624; G0123 ==

== ENCOUNTER → 2022-09-17 | Outpatient (CLI) | payer OTHER | LOC: M WHC 09:58 | PROVIDERS: ATTEND Nurse Practitioner Family | DX: R92.8 Other abnormal and inconclusive findings on diagnostic imaging of breast (principal); N60.11 Diffuse cystic mastopathy of right breast ==

== ENCOUNTER → 2022-10-15 | Outpatient (CLI) | payer OTHER | LOC: M WHC 07:51 | PROVIDERS: ATTEND Internal Medicine | DX: R10.11 Right upper quadrant pain (principal); R16.0 Hepatomegaly, not elsewhere classified; K76.0 Fatty (change of) liver, not elsewhere classified ==

== ENCOUNTER → 2022-12-15 | Outpatient (CLI) | payer OTHER | LOC: M RAD 07:52 | PROVIDERS: ATTEND Internal Medicine Gastroenterology | DX: R10.11 Right upper quadrant pain (principal) | CPT/HCPCS: 78227; A9537 ==

== ENCOUNTER 2023-04-28 11:36 | Day surgery (SDC) | payer OTHER ==
[~2023-04-28] VITALS: Ht 154.9 cm; Wt 102.3 kg
[~2023-04-28 11:36] MED LIST changes: +LIDOCAINE 2% 100MG/5ML SDV (FOR ANES.) As Ordered ONE; +NS 1,000 ML IV ONE; +SEMA2PEN SQ; +fentaNYL 100 MCG/2 ML INJECTION As Ordered ONE; +propofoL 500 MG/50 ML VIAL As Ordered ONE
[2023-04-28 13:32] VITALS: TEMP 97.1
[2023-04-28 13:47] VITALS: BP 112/53; O2SAT 95
== END 2023-04-28 13:47 | disposition home or self-care (01) ==
LOC: M OPP 11:36
PROVIDERS: ATTEND Internal Medicine Gastroenterology
DX: Z12.11 Encounter for screening for malignant neoplasm of colon (principal); Z12.12 Encounter for screening for malignant neoplasm of rectum; D12.3 Benign neoplasm of transverse colon; K22.89 Other specified disease of esophagus; K21.9 Gastro-esophageal reflux disease without esophagitis; E11.9 Type 2 diabetes mellitus without complications; G47.30 Sleep apnea, unspecified; Z79.899 Other long term (current) drug therapy; Z90.49 Acquired absence of other specified parts of digestive tract
CPT/HCPCS: 43239; 45380; 88305; J3010

== ENCOUNTER → 2024-03-24 | Outpatient (CLI) | payer OTHER ==
[~2024-03-24] MED LIST changes: -LIDOCAINE 2% 100MG/5ML SDV (FOR ANES.) As Ordered ONE; -NS 1,000 ML IV ONE; +ONDA-282 PO; -ONDA4TAB6 PO; -fentaNYL 100 MCG/2 ML INJECTION As Ordered ONE; -propofoL 500 MG/50 ML VIAL As Ordered ONE
== END ==
LOC: M SOG 07:18
PROVIDERS: ATTEND Physician Assistant
DX: M25.512 Pain in left shoulder (principal)

== ENCOUNTER → 2024-04-18 | Outpatient (CLI) | payer OTHER | LOC: M SOG 13:19 | PROVIDERS: ATTEND Physician Assistant | DX: M54.2 Cervicalgia (principal); M47.812 Spondylosis without myelopathy or radiculopathy, cervical region ==

== ENCOUNTER → 2024-04-26 | Outpatient (REF) | LOC: M LAB 09:24 | PROVIDERS: ATTEND Family Medicine | DX: Z20.822 Contact with and (suspected) exposure to COVID-19 (principal) ==

== ENCOUNTER → 2024-07-17 | Outpatient (CLI) | payer OTHER | LOC: M PLAIMG 15:15 | PROVIDERS: ATTEND Physician Assistant | DX: M54.12 Radiculopathy, cervical region (principal); M50.20 Other cervical disc displacement, unspecified cervical region; M89.38 Hypertrophy of bone, other site; M48.02 Spinal stenosis, cervical region; M47.812 Spondylosis without myelopathy or radiculopathy, cervical region ==

== ENCOUNTER → 2025-07-02 | Outpatient (REF) | payer BC ==
[~2025-07-02] MED LIST changes: -FLOM0.4C39 PO; -IBUP-1022 PO; +IBUP600T42 PO; +TAMS-18 PO
[2025-07-02 12:48] LABS: ALT/SGPT 26 U/L (7.0-40); AST/SGOT 11 U/L (<34); CALCIUM LEVEL 9.3 MG/DL (8.3-10.6); CARBON DIOXIDE LEVEL 29 MMOL/L (20-31); CHLORIDE LEVEL 106 MMOL/L (98-107); CHOLESTEROL LEVEL 137 MG/DL (<200); CHOLESTEROL RISK RATIO 4.53 (<5); CREATININE FOR GFR 0.71 MG/DL (0.55-1.30); GLOMERULAR FILTRATION RATE > 90.0 (>45); LDL CHOLESTEROL 67.2 MG/DL (<100); MAGNESIUM LEVEL 1.8 MG/DL (1.8-2.4); NON-HDL-C 106.8 MG/DL; POTASSIUM SERUM 4.4 MMOL/L (3.5-5.1); SODIUM LEVEL 144 MMOL/L (136-145); TRIGLYCERIDES LEVEL 198 MG/DL (<150)
[2025-07-02 12:51] LABS: BASO # 0.0 10^3/uL (0.0-0.2); BASO % 0.3 % (0.0-1.0); EOS # 0.3 10^3/uL (0.0-0.5); EOS % 3.2 % (0.0-3.0); LYMPH # 2.8 10^3/uL (1.5-5.0); LYMPH % 28.1 % (24.0-44.0); MONO # 1.0 10^3/uL (0.0-0.8); MONO % 10.4 % (2.0-8.0); NEUTROPHILS # 5.6 10^3/uL (1.5-8.5); NEUTROPHILS % 56.9 % (36.0-66.0); PLATELET COUNT, AUTOMATED 232 10^3/uL (150-450)
[2025-07-02 13:16] LABS: ESTIMATED AVERAGE GLUCOSE 123.0 MG/DL (60-110)
[2025-07-02 13:24] LABS: CREATININE, URINE 102.4 MG/DL
[2025-07-02 13:25] LABS: MALB URINE SIEMENS 7.0 MG/L; MAU/CREAT RATIO 6.8 MCG/MG (0.0-30.0)
== END ==
LOC: M LAB REF 11:57
PROVIDERS: ATTEND Internal Medicine
DX: E11.9 Type 2 diabetes mellitus without complications (principal); K76.0 Fatty (change of) liver, not elsewhere classified; I10 Essential (primary) hypertension